=== PATIENT | male | born 1985 | race Caucasian/White ===

== ENCOUNTER 2020-01-17 14:21 | Outpatient (REF) | payer OTHER, SELFPAY | END 2020-01-17 14:22 | disposition home or self-care (01) | LOC: HO.LNP 14:21 | PROVIDERS: Visit Provider Internal Medicine | DX: R05 Cough (principal); Z20.828 Contact with and (suspected) exposure to other viral communicable diseases | CPT/HCPCS: 87635 ==

== ENCOUNTER 2020-04-07 14:24 | Outpatient (REF) | payer OTHER, SELFPAY ==
[2020-04-07 15:23] LABS: Influenza A PCR NEGATIVE (Negative); Influenza B PCR NEGATIVE (Negative); Resp Syncy Virus RNA Qual PCR NEGATIVE (Negative); SARS COV2 PCR INHOUSE NEGATIVE (Negative)
== END 2020-04-07 14:25 | disposition home or self-care (01) ==
LOC: HO.LNP 14:24
PROVIDERS: Visit Provider Internal Medicine
DX: Z20.828 Contact with and (suspected) exposure to other viral communicable diseases (principal)
CPT/HCPCS: 0241U

== ENCOUNTER 2020-04-27 14:18 | Outpatient (REF) | payer OTHER, SELFPAY | END 2020-04-27 14:19 | disposition home or self-care (01) | LOC: HO.LNP 14:18 | PROVIDERS: Visit Provider Internal Medicine | DX: Z20.822 Contact with and (suspected) exposure to COVID-19 (principal) | CPT/HCPCS: U0003 ==

== ENCOUNTER 2020-08-12 15:14 | Outpatient (REF) | payer OTHER, SELFPAY ==
--- NOTE | ~2020-08-12 | XR_ITS ---
EXAMINATION: XR FOOT, RIGHT CLINICAL INFORMATION: Right MTP pain. Assess for osteoarthritis. COMPARISON: None TECHNIQUE: AP, lateral, and oblique views of the right foot. FINDINGS: The bones and soft tissues are normal. No fracture. Alignment is anatomic. Joint spaces are maintained. XR/XR foot RT min 3V IMPRESSION: Normal right foot.
[2020-08-12 16:04] LABS: MANUAL DIFF FLAG NO
[2020-08-12 16:08] LABS: Basophils Absolute Auto 0.1 X10*3/uL (0.0-0.2); Basophils Percent Auto 0.8 % (0-2); Eosinophils Absolute Auto 0.4 X10*3/uL (0.0-0.4); Eosinophils Percent Auto 5.5 % (0-4); Hematocrit 47.6 % (42-52); Hemoglobin 15.7 g/dl (14.0-18.0); Imm Gran Abs Auto 0.05 X10*3/uL (0.00-0.03); Imm Gran Pct Auto 0.7 % (0.0-0.4); Lymphocytes Absolute Auto 1.7 X10*3/uL (1.2-4.9); Monocytes Absolute Auto 0.6 X10*3/uL (0.1-1.2); Monocytes Percent Auto 8.4 % (2-11); Neutrophils Absolute Auto 4.6 X10*3/uL (2.0-8.3); Neutrophils Percent Auto 61.6 % (45-73); Platelet Count 320 X10*3/uL (160-400); Red Blood Count 5.41 X10*6/uL (4.60-5.80); Red Cell Distribution Width 12.9 % (11.0-16.0); White Blood Count 7.5 X10*3/uL (4.8-10.8)
[2020-08-12 16:26] LABS: Anion Gap 12 (12-20); Blood Urea Nitrogen 17 mg/dL (9-16); C Reactive Protein 0.55 mg/dL (< or = 0.50); Calcium 9.6 mg/dL (8.4-10.2); Carbon Dioxide 30 mmol/L (22-29); Chloride 102 mmol/L (96-108); Estimated Glomerular Filt Rate > 60; Glucose Random 102 mg/dL (60-115); Potassium 4.5 mmol/L (3.3-5.1); Sodium 139 mmol/L (135-145); Uric Acid 8.1 mg/dL (3.4-7.0)
== END 2020-08-12 15:15 | disposition home or self-care (01) ==
LOC: HO.XRAY 15:14
PROVIDERS: PCP Internal Medicine; Visit Provider Internal Medicine
DX: M79.671 Pain in right foot (principal)
CPT/HCPCS: 36415; 73630; 80048; 84550; 85025; 86140

== ENCOUNTER 2020-08-28 09:26 | Outpatient (REF) | payer OTHER, SELFPAY ==
[2020-08-28 10:21] LABS: Glucose Urine UA 500 MG/DL (NEG); Leukocyte Esterase Urine NEG (NEG); Nitrite Urine NEG (NEG); Urine Blood NEG (NEG); Urine Ketones 5 MG/DL (NEG); Urine Protein NEG (NEG-TRACE)
[2020-08-28 10:22] LABS: Appearance Urine CLEAR; Color Urine YELLOW
[2020-08-28 10:42] LABS: Anion Gap 14 (12-20); Blood Urea Nitrogen 17 mg/dL (9-16); Calcium 9.5 mg/dL (8.4-10.2); Carbon Dioxide 28 mmol/L (22-29); Chloride 98 mmol/L (96-108); Estimated Glomerular Filt Rate > 60; Glucose Random 147 mg/dL (60-115); Sodium 136 mmol/L (135-145)
== END 2020-08-28 09:27 | disposition home or self-care (01) ==
LOC: HO.10HDL 09:26
PROVIDERS: Visit Provider Internal Medicine
DX: R30.0 Dysuria (principal); R73.9 Hyperglycemia, unspecified
CPT/HCPCS: 36415; 80048; 81003; 87086

== ENCOUNTER 2020-09-07 09:01 | Outpatient (REF) | payer OTHER, SELFPAY ==
[2020-09-07 10:39] LABS: Glucose Random 90 mg/dL (60-115)
[2020-09-07 10:45] LABS: Estimated Average Glucose 123 mg/dL; Hemoglobin A1c % 5.9 %
[2020-10-01 14:10] VITALS: BMI 35.3
== END 2020-09-07 09:02 | disposition home or self-care (01) ==
LOC: HO.10HDL 09:01
PROVIDERS: Visit Provider Internal Medicine
DX: R73.9 Hyperglycemia, unspecified (principal)
CPT/HCPCS: 36415; 82947; 83036

== ENCOUNTER 2021-02-17 12:45 | Outpatient (REF) | payer OTHER, SELFPAY ==
[2021-02-17 13:56] LABS: IDNOW Serial# 9DD0AD1C; Strep A Nucleic Acid Negative (Negative)
== END 2021-02-17 12:46 | disposition home or self-care (01) ==
LOC: HO.10HDLNP 12:45
PROVIDERS: Visit Provider Internal Medicine
DX: J02.9 Acute pharyngitis, unspecified (principal)
CPT/HCPCS: 87651

== ENCOUNTER 2021-03-24 13:50 | Outpatient (REF) | payer OTHER, SELFPAY ==
--- NOTE | ~2021-03-24 | XR_ITS ---
EXAMINATION: XR CHEST CLINICAL INFORMATION: Cough and chest tightness. History of Covid pneumonia. COMPARISON: CXR from 09/21/2016 TECHNIQUE: 2 views of the chest were obtained. FINDINGS: Lungs are well expanded. The bronchial jones appear to be diffusely thickened. Query if there is a history of asthma or bronchitis. No focal interstitial infiltrate, consolidation or pleural effusion. An azygous fissure is seen in the medial right apex. Cardiomediastinal silhouette has normal size and contour. The visualized bones and upper abdomen are unremarkable. XR/XR chest 2V IMPRESSION: * No evidence of pneumonia. * There appears to be diffuse thickening of the bronchial jones; consider possibility of bronchitis or asthma, if in the right clinical context.
== END 2021-03-24 13:51 | disposition home or self-care (01) ==
LOC: HO.XRAY 13:50
PROVIDERS: PCP Internal Medicine; Visit Provider Internal Medicine
DX: R05.9 Cough, unspecified (principal); R07.89 Other chest pain; Z86.16 Personal history of COVID-19; Z87.01 Personal history of pneumonia (recurrent)
CPT/HCPCS: 71046

== ENCOUNTER 2021-04-06 17:57 | Outpatient (REF) | payer OTHER, SELFPAY ==
[2021-04-06 18:45] LABS: Influenza A PCR NEGATIVE (Negative); Influenza B PCR NEGATIVE (Negative); Resp Syncy Virus RNA Qual PCR NEGATIVE (Negative); SARS COV2 PCR INHOUSE NEGATIVE (Negative)
== END 2021-04-06 17:58 | disposition home or self-care (01) ==
LOC: HO.LNP 17:57
PROVIDERS: Visit Provider Internal Medicine
DX: Z20.822 Contact with and (suspected) exposure to COVID-19 (principal); R05.9 Cough, unspecified
CPT/HCPCS: 0241U

== ENCOUNTER 2021-05-25 11:21 | Outpatient (REF) | payer OTHER, SELFPAY ==
[2021-05-25 14:12] LABS: Appearance Urine CLEAR; Color Urine YELLOW; Glucose Urine UA NEG (NEG); Leukocyte Esterase Urine NEG (NEG); Nitrite Urine NEG (NEG); Specific Gravity - Urine 1.025 (1.005-1.025); Urine Blood NEG (NEG); Urine Ketones NEG (NEG); Urine Protein NEG (NEG-TRACE)
[2021-05-25 14:14] LABS: Estimated Average Glucose 126 mg/dL
[2021-05-25 14:29] LABS: Anion Gap 12 (12-20); Blood Urea Nitrogen 16 mg/dL (9-16); Calcium 9.5 mg/dL (8.4-10.2); Carbon Dioxide 24 mmol/L (22-29); Chloride 105 mmol/L (96-108); Estimated Glomerular Filt Rate > 60; Glucose Random 101 mg/dL (60-115); Potassium 4.2 mmol/L (3.3-5.1); Sodium 137 mmol/L (135-145)
== END 2021-05-25 11:22 | disposition home or self-care (01) ==
LOC: HO.10HDL 11:21
PROVIDERS: Visit Provider Internal Medicine
DX: R73.03 Prediabetes (principal)
CPT/HCPCS: 36415; 80048; 81003; 83036; 87086

== ENCOUNTER 2021-07-14 16:23 | Outpatient (REF) | payer OTHER, SELFPAY ==
[2021-07-14 17:11] LABS: Estimated Average Glucose 117 mg/dL; Hemoglobin A1C 151.0699 umol/L; Hemoglobin A1c % 5.7 %
[2021-07-14 17:30] LABS: Anion Gap 12 (12-20); Blood Urea Nitrogen 17 mg/dL (9-16); Calcium 9.7 mg/dL (8.4-10.2); Carbon Dioxide 27 mmol/L (22-29); Chloride 105 mmol/L (96-108); Estimated Glomerular Filt Rate > 60; Glucose Random 114 mg/dL (60-115); Potassium 4.9 mmol/L (3.3-5.1); Sodium 139 mmol/L (135-145)
[2021-07-14 17:41] LABS: Prostate Specific Antigen 0.34 ng/mL (<0.05-4.0)
[2021-07-14 19:08] LABS: Appearance Urine CLEAR; Color Urine YELLOW; Glucose Urine UA 100 MG/DL (NEG); Leukocyte Esterase Urine NEG (NEG); Nitrite Urine NEG (NEG); Urine Blood NEG (NEG); Urine Ketones NEG (NEG); Urine Protein NEG (NEG-TRACE)
== END 2021-07-14 16:24 | disposition home or self-care (01) ==
LOC: HO.LAB 16:23
PROVIDERS: PCP Internal Medicine; Visit Provider Internal Medicine
DX: Z12.5 Encounter for screening for malignant neoplasm of prostate (principal); R35.0 Frequency of micturition
CPT/HCPCS: 36415; 80048; 81003; 83036; 84153; 87086

== ENCOUNTER 2022-02-24 15:44 | Outpatient (REF) | payer OTHER, SELFPAY ==
[2022-02-24 16:31] LABS: Influenza A PCR NEGATIVE (Negative); Influenza B PCR NEGATIVE (Negative); Resp Syncy Virus RNA Qual PCR NEGATIVE (Negative); SARS COV2 PCR INHOUSE NEGATIVE (Negative)
== END 2022-02-24 15:45 | disposition home or self-care (01) ==
LOC: HO.LNP 15:44
PROVIDERS: Visit Provider Internal Medicine
DX: R06.02 Shortness of breath (principal); R53.83 Other fatigue
CPT/HCPCS: 0241U

== ENCOUNTER 2022-02-25 14:22 | Outpatient (REF) | payer OTHER, SELFPAY ==
--- NOTE | ~2022-02-25 | XR_ITS ---
EXAMINATION: XR CHEST CLINICAL INFORMATION: Shortness of breath. COMPARISON: 03/24/2021 TECHNIQUE: 2 views of the chest were obtained. FINDINGS: Once again seen is bronchial wall thickening similar to prior. No acute significant abnormality is noted involving the heart, lungs, mediastinum, bony thorax or soft tissues. No infiltrates, effusions or lung masses are seen. Again seen is an accessory azygos fissure. XR/XR chest 2V IMPRESSION: No acute intrathoracic disease.
== END 2022-02-25 14:23 | disposition home or self-care (01) ==
LOC: HO.XRAY 14:22
PROVIDERS: Visit Provider Internal Medicine
DX: J45.909 Unspecified asthma, uncomplicated (principal); R06.02 Shortness of breath; R53.83 Other fatigue
CPT/HCPCS: 71046

== ENCOUNTER 2022-08-09 14:19 | Outpatient (REF) | payer OTHER, SELFPAY ==
[2022-08-09 14:33] LABS: MANUAL DIFF FLAG NO
[2022-08-09 15:39] LABS: Basophils Absolute Auto 0.1 X10*3/uL (0.0-0.2); Basophils Percent Auto 1.2 % (0-2); Eosinophils Absolute Auto 0.4 X10*3/uL (0.0-0.4); Eosinophils Percent Auto 4.8 % (0-4); Hematocrit 46.8 % (42.0-52.0); Hemoglobin 15.6 g/dl (14.0-18.0); Imm Gran Abs Auto 0.02 X10*3/uL (0.00-0.03); Imm Gran Pct Auto 0.3 % (0.0-0.4); Lymphocytes Absolute Auto 2.3 X10*3/uL (1.2-4.9); Lymphocytes Percent Auto 30.1 % (20-40); Mean Corpuscular HGB Conc 33.3 g/dl (31.0-36.0); Mean Corpuscular Hemoglobin 29.1 pg (27.0-33.0); Mean Corpuscular Volume 87.3 fL (80.0-98.0); Mean Platelet Volume 10.5 fL (9.4-12.4); Monocytes Absolute Auto 0.8 X10*3/uL (0.1-1.2); Neutrophils Percent Auto 52.6 % (45-73); Platelet Count 340 X10*3/uL (160-400); Red Blood Count 5.36 X10*6/uL (4.60-5.80); Red Cell Distribution Width 12.8 % (11.0-16.0); White Blood Count 7.7 X10*3/uL (4.8-10.8)
[2022-08-09 16:21] LABS: Alanine Aminotransferase 29 U/L (0-40); Albumin Level 4.1 g/dL (3.5-5.0); Alkaline Phosphatase 74 U/L (39-117); Anion Gap 15 (12-20); Aspartate Amino Transferase 19 U/L (5-37); Bilirubin Total 0.3 mg/dL (0.0-1.0); Blood Urea Nitrogen 13 mg/dL (9-16); Calcium 9.8 mg/dL (8.4-10.2); Carbon Dioxide 28 mmol/L (22-29); Chloride 100 mmol/L (96-108); Estimated Glomerular Filt Rate > 60; Glucose Random 134 mg/dL (60-115); Potassium 4.5 mmol/L (3.3-5.1); Sodium 138 mmol/L (135-145); Total Protein 7.4 g/dL (6.5-8.0)
[2022-08-09 16:45] LABS: Thyroid Stimulating Hormone 3.74 uIU/mL (0.32-4.0); Vitamin B12 335 pg/mL (200-900)
== END 2022-08-09 14:20 | disposition home or self-care (01) ==
LOC: HO.LAB 14:19
PROVIDERS: PCP Internal Medicine; Visit Provider Internal Medicine
DX: G62.9 Polyneuropathy, unspecified (principal); J30.1 Allergic rhinitis due to pollen
CPT/HCPCS: 36415; 80053; 82607; 84443; 85025

== ENCOUNTER 2022-09-21 15:23 | Outpatient (REF) | payer OTHER, SELFPAY ==
[2022-09-21 16:13] LABS: Estimated Average Glucose 120 mg/dL; Hemoglobin A1c % 5.8 %
[2022-09-21 16:26] LABS: Anion Gap 13 (12-20); Blood Urea Nitrogen 18 mg/dL (9-16); Calcium 9.5 mg/dL (8.4-10.2); Carbon Dioxide 24 mmol/L (22-29); Chloride 103 mmol/L (96-108); Estimated Glomerular Filt Rate > 60; Glucose Random 260 mg/dL (60-115); Potassium 4.1 mmol/L (3.3-5.1); Sodium 136 mmol/L (135-145)
== END 2022-09-21 15:24 | disposition home or self-care (01) ==
LOC: HO.LAB 15:23
PROVIDERS: PCP Internal Medicine; Visit Provider Internal Medicine
DX: R53.1 Weakness (principal); E11.9 Type 2 diabetes mellitus without complications
CPT/HCPCS: 36415; 80048; 83036

== ENCOUNTER 2023-02-14 15:42 | Outpatient (REF) | payer BC, SELFPAY ==
[2023-02-14 16:12] LABS: MANUAL DIFF FLAG NO
[2023-02-14 16:21] LABS: Basophils Absolute Auto 0.1 X10*3/uL (0.0-0.2); Basophils Percent Auto 0.8 % (0-2); Eosinophils Absolute Auto 0.6 X10*3/uL (0.0-0.4); Eosinophils Percent Auto 6.5 % (0-4); Hematocrit 45.7 % (42.0-52.0); Hemoglobin 15.4 g/dl (14.0-18.0); Imm Gran Abs Auto 0.08 X10*3/uL (0.00-0.03); Imm Gran Pct Auto 0.8 % (0.0-0.4); Lymphocytes Absolute Auto 2.2 X10*3/uL (1.2-4.9); Lymphocytes Percent Auto 23.3 % (20-40); Mean Corpuscular HGB Conc 33.7 g/dl (31.0-36.0); Mean Corpuscular Hemoglobin 29.3 pg (27.0-33.0); Mean Corpuscular Volume 86.9 fL (80.0-98.0); Mean Platelet Volume 10.3 fL (9.4-12.4); Monocytes Absolute Auto 0.8 X10*3/uL (0.1-1.2); Monocytes Percent Auto 8.6 % (2-11); Neutrophils Absolute Auto 5.7 x10*3/uL (2.0-8.3); Platelet Count 318 X10*3/uL (160-400); Red Blood Count 5.26 X10*6/uL (4.60-5.80); Red Cell Distribution Width 12.6 % (11.0-16.0); White Blood Count 9.4 X10*3/uL (4.8-10.8)
[2023-02-14 16:37] LABS: Estimated Average Glucose 146 mg/dL; Hemoglobin A1c % 6.7 % (<6.0)
[2023-02-14 17:12] LABS: Alanine Aminotransferase 29 U/L (0-40); Albumin Level 4.3 g/dL (3.5-5.0); Alkaline Phosphatase 79 U/L (39-117); Anion Gap 17 (12-20); Aspartate Amino Transferase 21 U/L (5-37); Bilirubin Total 0.3 mg/dL (0.0-1.0); Blood Urea Nitrogen 18 mg/dL (9-16); C Reactive Protein 1.05 mg/dL (< or = 0.50); Carbon Dioxide 26 mmol/L (22-29); Chloride 102 mmol/L (96-108); Estimated Glomerular Filt Rate > 60; Glucose Random 175 mg/dL (60-115); Potassium 3.8 mmol/L (3.3-5.1); Sodium 141 mmol/L (135-145); Total Protein 7.9 g/dL (6.5-8.0)
== END 2023-02-14 15:43 | disposition home or self-care (01) ==
LOC: HO.LAB 15:42
PROVIDERS: PCP Internal Medicine; Visit Provider Internal Medicine
DX: R73.03 Prediabetes (principal); R63.5 Abnormal weight gain; L30.9 Dermatitis, unspecified
CPT/HCPCS: 36415; 80053; 83036; 85025; 86140

== ENCOUNTER 2023-10-30 13:35 | Outpatient (AMB) | payer BC, SELFPAY ==
--- NOTE | 2023-10-30 13:38 | A.OFFVIS_ITS ---
Intake Visit Reasons: balanitis Intake Note: Patient is present for BALANITIS Urology Medication:NONE Antibiotic Allergy:AMOXICILLIN, Blood Thinner:NONE Mannequin Maker Required: No Allergies amoxicillin Allergy (Unknown, Verified 10/30/23 13:39) anaphylaxis bacitracin Allergy (Unknown, Verified 10/30/23 13:39) anaphylaxis Peanut Butter Flavor Allergy (Unknown, Uncoded 10/30/23 13:39) anaphylaxis peanut butter flavor Allergy (Unknown, Uncoded 10/30/23 13:39) anaphylaxis HPI Comments Details: Lefty is a 38-year-old male who is here with complaints of redness and itching around his foreskin for the last couple of years. He has been treated with a cream. He states that initially the cream was helping but there is no thickening of the skin and it is difficult to pull the foreskin back to clean the penis well. He states that he has been diagnosed with diabetes and he has been on Trulicity and metformin for the last 3 weeks. I have discussed circumcision and will prescribe Lotrimin cream p.r.n.. Discussed that his hemoglobin A1 C needs to be less than 7. Review of Systems Const All systems reviewed & are unremarkable except as noted in HPI and below Reports no additional complaints Eyes Reports no additional complaints ENT Reports no additional complaints Card Reports no additional complaints Resp Reports no additional complaints GI Reports no additional complaints Reports as per HPI Musc Reports no additional complaints Skin/Breast Reports system reviewed and no additional complaints, except as documented Neuro Reports no additional complaints Psych Reports no additional complaints Endo Reports no additional complaints Wilian/Lymph Reports no additional complaints Aller/Immun Reports no additional complaints Physical Exam Const General: healthy appearing, no acute distress and well developed Nutritional Appearance: overweight Orientation/consciousness: patient oriented x3 HEENT Head: Yes normocephalic and Yes atraumatic Eyes Conjunctivae: conjunctivae normal Neck Neck: Yes normal visual inspection Chest Chest palpation & inspection: normal inspection of the chest Resp Effort & Inspection: normal respiratory effort Cardio Jugular venous distension: no JVD GI Inspection: Yes normal to inspection Palpation (GI): Soft to palpation Other: penis and able to retract foreskin due to thickening. Penis: uncircumcised Scrotum: scrotum normal Skin General skin exam: no rashes or lesions noted Neuro General: patient oriented x3 Extrem General: No pedal edema Psych Appearance: grossly normal Affect: normal affect Results AMB Urinalysis, Automated UA Leukoctes 0 Yuliana/uL Last Edit by Jayden Franco [facility] on 10/30/23 13:49 UA Nitrite Negative Last Edit by Jayden Franco [facility] on 10/30/23 13:49 UA Urobilinogen 0.2 mg/dL Last Edit by Jayden Franco [facility] on 10/30/23 13:4 9 UA Protein 0 mg/dL Last Edit by Jayden Franco [facility] on 10/30/23 13:49 UA pH 6.0 Last Edit by Jayden Franco [facility] on 10/30/23 13:49 UA Blood 0 Jimmy/uL Last Edit by Jayden Franco [facility] on 10/30/23 13:49 UA Specific [place] 1.015 Last Edit by Jayden Franco [facility] on 10/30/23 13: 49 UA Ketone Negative Last Edit by Jayden Franco [facility] on 10/30/23 13:49 UA Bilirubin 0 mg/dL Last Edit by Jayden Franco [facility] on 10/30/23 13:49 UA Glucose 1000 mg/dL Last Edit by Jayden Franco [facility] on 10/30/23 13:49 Results Reviewed Results Reviewed: Laboratory Last Values Urine pH (Auto) 6.0 10/30/23 13:48 Specific [place] (Auto) 1.015 10/30/23 13:48 Urine Protein (Auto) 0 mg/dL 10/30/23 13:48 Glucose (UA)(Auto) 1000 mg/dL 10/30/23 13:48 Urine Ketones (Auto) Negative 10/30/23 13:48 Urine Blood (Auto) 0 Jimmy/uL 10/30/23 13:48 Urine Nitrite (Auto) Negative 10/30/23 13:48 Urine Bilirubin (Auto) 0 mg/dL 10/30/23 13:48 Urine Urobilinogen (Auto) 0.2 mg/dL 10/30/23 13:48 Leukocyte Esterase (Auto) 0 Yuliana/uL 10/30/23 13:48 hemoglobin O2c--7302/14/23 6.7?H--- normal%<6.0 Assessment & Plan Assessment & Plan (1) Balanitis: Code(s): N48.1 - Balanitis Category: Medical (2) Diabetes: Code(s): E11.9 - Type 2 diabetes mellitus without complications Category: Medical Plan I have discussed circumcision and will prescribe Lotrimin cream p.r.n.. Discussed that his hemoglobin A1 C needs to be less than 7. Orders: Orders AMB Urinalysis Automated 10/30/23 Z13.9 - Encounter for screening, unspecified Medications: New clotrimazole-betamethasone 1-0.05 % use on affected area, twice a day for 7 days; then continue twice a day as needed for itching or redness, stop use when symptoms resolve. 1 appl topical BID 45 grams 0RF Patient Instructions: The patient had an opportunity to ask questions regarding treatment plan. The patient expressed understanding and agreement with the above treatment plan. The patient is aware they should contact our office by phone for worsening of their current condition or the appearance of new symptoms. Compliance is encouraged with any medications and followup testing that is ordered. It is a privilege to be allowed the opportunity to participate in the urologic care of your patient. If you have any questions or concerns regarding treatment for the above conditions please do not hesitate to contact me. The office telephone contact is [phone]. This note is constructed in part using voice recognition software. While every effort has been made to ensure accuracy headline writer errors may have been included. Yours sincerely, Mayra Medeiros MD Coding Level of Care Code New Pt Level 4 (78911) Diagnoses Balanitis N48.1 Diabetes E11.9
== END 2023-10-30 14:13 | disposition home or self-care (01) ==
PROVIDERS: PCP Physician Assistant; Visit Provider Urology
DX: N48.1 Balanitis (principal); E11.9 Type 2 diabetes mellitus without complications
CPT/HCPCS: 99204

== ENCOUNTER → 2023-10-30 13:35 | Outpatient (BNVA) | payer BC, SELFPAY | PROVIDERS: PCP Physician Assistant; Visit Provider Urology | DX: N48.1 Balanitis (principal); E11.9 Type 2 diabetes mellitus without complications | CPT/HCPCS: 81003 ==

== ENCOUNTER 2024-01-01 12:38 | Outpatient (REF) | payer BC, SELFPAY ==
[2024-01-01 14:40] LABS: Estimated Average Glucose 163 mg/dL; Hemoglobin A1c % 7.3 % (<6.0)
== END 2024-01-01 12:39 | disposition home or self-care (01) ==
LOC: HO.10HDL 12:38
PROVIDERS: Visit Provider Urology
DX: E11.9 Type 2 diabetes mellitus without complications (principal); N48.1 Balanitis
CPT/HCPCS: 36415; 83036

== ENCOUNTER 2024-01-09 05:43 | Day surgery (SDC) | payer BC, SELFPAY ==
--- NOTE | 2024-01-05 10:06 | P.CONAN_ITS ---
Documented by User: Gloria Badillo NP 01/05/24 10:06 HPI - Anesthesia Eval Consult details Narrative: 38yo M for Circumcision Medically optimized per PCP Anesthesia Pre-Procedure Meds Is the patient on any of the following meds?: GLP1/DPP4 PMFSH Active Problems Active Problems: All Active Problems Diabetes (Acute) Balanitis (Acute) Past Medical History Medical History Allergies Asthma Depression Diabetes Surgical History Surgical History Hx of nasal septoplasty Social History Social History Are you a primary managed care nurse to a significant other at home: No Do you presently have visiting nurse or other home services: No Patient Tobacco Use Status: Never used Tobacco Substance Use Frequency: Weekly Have you been hit, kicked, punched, or otherwise hurt by someone within the past year? If so, by whom?: No Are you DNR?: No Advance Directives: No Advance Directives Information Provided: Yes Recently lost weight without trying: No Nutrition Risks: No Nutritional Risk Meds Allergies Allergy/AdvReac Type Severity Reaction Status Date / Time amoxicillin Allergy Unknown anaphylaxis Verified 01/09/24 06:36 bacitracin Allergy Unknown anaphylaxis Verified 01/09/24 06:36 Peanut Butter Flavor Allergy Unknown anaphylaxis Uncoded 01/09/24 06:36 peanut butter flavor Allergy Unknown anaphylaxis Uncoded 01/09/24 06:36 Home Medications ?Medication ?Instructions ?Recorded ?Confirmed ?Last Taken ?Type bupropion HCl 150 mg 24 hr tablet, 150 mg PO DAILY 10/30/23 01/09/24 Unknown History extended release dulaglutide 0.75 mg/0.5 mL mg subcut 10/30/23 01/01/24 History subcutaneous pen injector (Trulicity) metformin 500 mg tablet 500 mg PO BID 10/30/23 01/09/24 Unknown History albuterol sulfate 90 mcg/actuation 2 puff inhalation Q6H 01/08/24 01/09/24 Unknown History aerosol inhaler cetirizine 10 mg tablet 10 mg PO DAILY 01/08/24 01/08/24 Unknown History fluoxetine 10 mg capsule 10 mg PO QPM 01/08/24 01/09/24 Unknown History hydroxyzine HCl 25 mg tablet 25 mg PO BEDTIME 01/08/24 01/09/24 Unknown History methylphenidate HCl 27 mg 27 mg PO QAM 01/08/24 01/09/24 Unknown History tablet,extended release 24 hr trazodone 50 mg tablet 50 mg PO DAILY 01/08/24 01/09/24 Unknown History Exam Narrative Narrative: EKG 12/2023 per clearance note NSR Assessment and Plan Assessment Anesthesia Assessment: Chart Reviewed Documented by User: Meryl Leonard MD 01/09/24 08:13 PMFSH Past Medical History Medical History Allergies Asthma Depression Diabetes Family History Family history of problems with anesthesia: No Surgical History Surgical History Hx of nasal septoplasty History of Problems with Anesthesia: No Social History Social History Are you a primary managed care nurse to a significant other at home: No Do you presently have visiting nurse or other home services: No Patient Tobacco Use Status: Never used Tobacco Substance Use Frequency: Weekly Have you been hit, kicked, punched, or otherwise hurt by someone within the past year? If so, by whom?: No Are you DNR?: No Advance Directives: No Advance Directives Information Provided: Yes Recently lost weight without trying: No Nutrition Risks: No Nutritional Risk Meds Allergies Allergy/AdvReac Type Severity Reaction Status Date / Time amoxicillin Allergy Unknown anaphylaxis Verified 01/09/24 06:36 bacitracin Allergy Unknown anaphylaxis Verified 01/09/24 06:36 Peanut Butter Flavor Allergy Unknown anaphylaxis Uncoded 01/09/24 06:36 peanut butter flavor Allergy Unknown anaphylaxis Uncoded 01/09/24 06:36 Home Medications ?Medication ?Instructions ?Recorded ?Confirmed ?Last Taken ?Type bupropion HCl 150 mg 24 hr tablet, 150 mg PO DAILY 10/30/23 01/09/24 Unknown History extended release dulaglutide 0.75 mg/0.5 mL mg subcut 10/30/23 01/01/24 History subcutaneous pen injector (Trulicity) metformin 500 mg tablet 500 mg PO BID 10/30/23 01/09/24 Unknown History albuterol sulfate 90 mcg/actuation 2 puff inhalation Q6H 01/08/24 01/09/24 Unknown History aerosol inhaler cetirizine 10 mg tablet 10 mg PO DAILY 01/08/24 01/08/24 Unknown History fluoxetine 10 mg capsule 10 mg PO QPM 01/08/24 01/09/24 Unknown History hydroxyzine HCl 25 mg tablet 25 mg PO BEDTIME 01/08/24 01/09/24 Unknown History methylphenidate HCl 27 mg 27 mg PO QAM 01/08/24 01/09/24 Unknown History tablet,extended release 24 hr trazodone 50 mg tablet 50 mg PO DAILY 01/08/24 01/09/24 Unknown History Exam Airway Mallampati Class: III TM Dist: >3cm Neck ROM: Full Heart: rrr Lungs: cta Assessment and Plan Assessment Anesthesia Assessment: Anesthesia Plan Discussed Final Anesthetic Review Family History of Problems with Anesthesia: No History of Problems with Anesthesia: No NPO: Yes ASA Class: III Final Preanesthetic Review: No Changes in Pt Med Stat, Meds/Allgs Chart Reviewed, Consent Obtained/Reviewed and Anes Risks/Benef Reviewed Patient Risk: Intermediate Procedure Risk: Low Anesthetic Plan Anesthetic Plan: GA Disposition: Standard PACU
[2024-01-09] VITALS (7 sets, daily range): BP systolic 103–139; BP diastolic 68–86; PULSE 88–103; RESP 17–18; TEMP 36.6–36.8; O2SAT 96–99; BMI 37.4
[2024-01-09] MEDS: Lactated Ringers 1,000 ML 100 ML IVCONT (06:27)
[2024-01-09 06:37] LABS: Glucose, Whole Blood 171 mg/dL (60-115)
--- NOTE | 2024-01-09 07:33 | MHC.SHP ---
Pre-Procedural Eval Section A - 24 Hr Update-Section A only Date of Service: 01/09/24 The patient is an INPATIENT: No The patient has been examined within 24 hours of the surgical procedure. The History & Physical has been completed within 30 days and I have reviewed it.: Yes Section B - Complete if H&P > 30 days Chief Complaint: Balanitis Allergies: Allergies Allergy/AdvReac Type Severity Reaction Status Date / Time amoxicillin Allergy Unknown anaphylaxis Verified 01/09/24 06:36 bacitracin Allergy Unknown anaphylaxis Verified 01/09/24 06:36 Peanut Butter Flavor Allergy Unknown anaphylaxis Uncoded 01/09/24 06:36 peanut butter flavor Allergy Unknown anaphylaxis Uncoded 01/09/24 06:36 Plan Diagnosis/Plan: Unchanged I have reviewed the history and physical and performed a pertinent physical examination on my patient. No changes have occurred unless specified. Circumcision. Risks discussed include but not limited to bruising, infection, bleeding. Time Spent With Patient Time: Total time managing care of this patient today ____ minutes.
--- NOTE | 2024-01-09 09:02 | W.PM.OPN ---
Operative Note Operative Note Date of Service: 01/09/24 Narrative: PreOperative Diagnosis:? ? Balanitis Post Operative Diagnosis:?Balanitis Procedure:?Circumcision Surgeon:?Dr Mayra Medeiros Anesthesia:? General Procedure: After informed consent was verified the patient was brought to the operating room and placed in a supine position.? Anesthesia was performed per protocol. The patient was prepped and draped in the usual sterile fashion. Safety pause time-out was performed. Antibiotics confirmed. Penile block was performed. With the foreskin over the glans a circumferential incision is made at the level of the pittman. The fore skin was then retracted and a circumferential incision was made 0.5 cm below the pittman. The foreskin is removed with cautery. The skin is closed in 4 quadrants with 4-0 chromic, each quadrant closed with running 4-0 chromic, Xeroform dressing was used over the incision and incision covered with cling. The patient tolerated the procedure well and was transferred to the recovery area upon completion. Complications: None
== END 2024-01-09 10:21 | disposition home or self-care (01) ==
PROVIDERS: PCP Physician Assistant; Visit Provider Urology
PROC: (CPT 54161; principal; 2024-01-09 07:30)
DX: N48.1 Balanitis (principal); N47.1 Phimosis; E11.9 Type 2 diabetes mellitus without complications; J45.909 Unspecified asthma, uncomplicated; F33.41 Major depressive disorder, recurrent, in partial remission; Z79.51 Long term (current) use of inhaled steroids; Z79.84 Long term (current) use of oral hypoglycemic drugs; Z79.85 Long-term (current) use of injectable non-insulin antidiabetic drugs; Z88.1 Allergy status to other antibiotic agents
CPT/HCPCS: 54161; 82947; 88304; J1100; J1885; J1956; J2250; J2405; J2704; J2795; J3010

== ENCOUNTER → 2024-01-09 05:43 | Outpatient (BNV) | payer BC, SELFPAY | PROVIDERS: PCP Physician Assistant; Visit Provider Urology | DX: N48.1 Balanitis (principal) | CPT/HCPCS: 54161 ==

== ENCOUNTER → 2024-01-15 09:51 | Outpatient (BNVA) | payer BC, SELFPAY | PROVIDERS: PCP Physician Assistant; Visit Provider Urology ==

== ENCOUNTER → 2024-01-19 10:27 | Outpatient (BNVA) | payer BC, SELFPAY | PROVIDERS: PCP Physician Assistant; Visit Provider Urology ==

== ENCOUNTER 2024-02-05 14:02 | Outpatient (AMB) | payer BC, SELFPAY ==
--- NOTE | 2024-02-05 14:07 | A.OFFVIS_ITS ---
Intake Visit Reasons: Circumcision- 1m follow up Intake Note: Patient is present for circumcision 1mf\ f/u Urology Medication:percocet, clotrimazole Antibiotic Allergy:amoxicillin,bacitracin Blood Thinner:none Hydrologic Engineer Required: No Allergies amoxicillin Allergy (Unknown, Verified 02/05/24 14:08) anaphylaxis bacitracin Allergy (Unknown, Verified 02/05/24 14:08) anaphylaxis Peanut Butter Flavor Allergy (Unknown, Uncoded 02/05/24 14:08) anaphylaxis peanut butter flavor Allergy (Unknown, Uncoded 02/05/24 14:08) anaphylaxis HPI Comments Details: 02/05/24--s/p Circumcision-01/09/24-- Lefty states he is Doing good, incision healing well. FU prn. 10/30/23--Lefty is a 38-year-old male who is here with complaints of redness and itching around his foreskin for the last couple of years. He has been treated with a cream. He states that initially the cream was helping but there is no thickening of the skin and it is difficult to pull the foreskin back to clean the penis well. He states that he has been diagnosed with diabetes and he has been on Trulicity and metformin for the last 3 weeks. I have discussed circumcision and will prescribe Lotrimin cream p.r.n.. Discussed that his hemoglobin A1 C needs to be less than 7. [facility] Medical History Allergies Asthma Depression Diabetes Surgical History Hx of nasal septoplasty Social History Are you a primary healthcare financial analyst to a significant other at home: No Do you presently have visiting nurse or other home services: No Patient Tobacco Use Status: Never used Tobacco Review of Systems Const All systems reviewed & are unremarkable except as noted in HPI and below Reports no additional complaints Eyes Reports no additional complaints ENT Reports no additional complaints Card Reports no additional complaints Resp Reports no additional complaints GI Reports no additional complaints Reports as per HPI Musc Reports no additional complaints Skin/Breast Reports system reviewed and no additional complaints, except as documented Neuro Reports no additional complaints Psych Reports no additional complaints Endo Reports no additional complaints Wilian/Lymph Reports no additional complaints Aller/Immun Reports no additional complaints Results AMB Urinalysis, Automated UA Leukoctes 0 Yuliana/uL Last Edit by CARINE Burns on 02/05/24 14:20 UA Nitrite Negative Last Edit by CARINE Burns on 02/05/24 14:20 UA Urobilinogen 0.2 mg/dL Last Edit by CARINE Burns on 02/05/24 14:2 0 UA Protein 0 mg/dL Last Edit by CARINE Burns on 02/05/24 14:20 UA pH 6.0 Last Edit by Jayedn Franco CCM on 02/05/24 14:20 UA Blood 0 Jimmy/uL Last Edit by CARINE Burns on 02/05/24 14:20 UA Specific [place] 1.015 Last Edit by CARINE Burns on 02/05/24 14: 20 UA Ketone Negative Last Edit by CARINE Burns on 02/05/24 14:20 UA Bilirubin 0 mg/dL Last Edit by CARINE Burns on 02/05/24 14:20 UA Glucose 0 mg/dL Last Edit by CARINE Burns on 02/05/24 14:20 Results Reviewed Results Reviewed: Laboratory Last Values Urine pH (Auto) 6.0 02/05/24 14:20 Specific [place] (Auto) 1.015 02/05/24 14:20 Urine Protein (Auto) 0 mg/dL 02/05/24 14:20 Glucose (UA)(Auto) 0 mg/dL 02/05/24 14:20 Urine Ketones (Auto) Negative 02/05/24 14:20 Urine Blood (Auto) 0 Jimmy/uL 02/05/24 14:20 Urine Nitrite (Auto) Negative 02/05/24 14:20 Urine Bilirubin (Auto) 0 mg/dL 02/05/24 14:20 Urine Urobilinogen (Auto) 0.2 mg/dL 02/05/24 14:20 Leukocyte Esterase (Auto) 0 Yuliana/uL 02/05/24 14:20 Assessment & Plan Assessment & Plan (1) Status post routine circumcision: Code(s): Z98.890 - Other specified postprocedural states Category: Surgical (2) Diabetes: Code(s): E11.9 - Type 2 diabetes mellitus without complications Category: Medical Plan FU prn Orders: Orders AMB Urinalysis Automated 02/05/24 Z13.9 - Encounter for screening, unspecified Patient Instructions: The patient had an opportunity to ask questions regarding treatment plan. The patient expressed understanding and agreement with the above treatment plan. The patient is aware they should contact our office by phone for worsening of their current condition or the appearance of new symptoms. Compliance is encouraged with any medications and followup testing that is ordered. It is a privilege to be allowed the opportunity to participate in the urologic care of your patient. If you have any questions or concerns regarding treatment for the above conditions please do not hesitate to contact me. The office telephone contact is [phone]. This note is constructed in part using voice recognition software. While every effort has been made to ensure accuracy customer relations consultant errors may have been included. Yours sincerely, Mayra Medeiros MD Coding Level of Care Code Est Pt Level 3 (03300) Diagnoses Status post routine circumcision Z98.890 Diabetes E11.9
== END 2024-02-05 14:33 | disposition home or self-care (01) ==
PROVIDERS: PCP Physician Assistant; Visit Provider Urology
DX: Z98.890 Other specified postprocedural states (principal); E11.9 Type 2 diabetes mellitus without complications
CPT/HCPCS: 99213

== ENCOUNTER → 2024-02-05 14:02 | Outpatient (BNVA) | payer BC, SELFPAY | PROVIDERS: PCP Physician Assistant; Visit Provider Urology | DX: Z09 Encounter for follow-up examination after completed treatment for conditions other than malignant neoplasm (principal); E11.9 Type 2 diabetes mellitus without complications | CPT/HCPCS: 81003 ==